=== PATIENT | female | born 1995 | race African-American/Black ===

== ENCOUNTER 2022-07-10 17:45 | Emergency (ER) | payer SELFPAY ==
[2022-07-10] MEDS ORDERED: Ibuprofen 800 MG TAB ONE (17:50)
[2022-07-10] MEDS ORDERED: Acetaminophen 500 MG TAB ONE (18:54)
== END 2022-07-10 19:17 ==
LOC: BURERS 17:45
DX: S43.402A Unspecified sprain of left shoulder joint, initial encounter (principal); F17.210 Nicotine dependence, cigarettes, uncomplicated; X50.9XXA Other and unspecified overexertion or strenuous movements or postures, initial encounter
CPT/HCPCS: 23650